=== PATIENT | female | born 1985 | race Caucasian/White ===

== ENCOUNTER 2019-04-10 00:53 | Inpatient (IN) | payer BC ==
[2019-04-10] VITALS (39 sets, daily range): BP systolic 95–129; BP diastolic 52–82; PULSE 74–114; TEMP 97.4–98.9
[~2019-04-10] VITALS: Ht 149.9 cm; Wt 66.4 kg
--- NOTE | 2019-04-10 01:00 | NUR ---
0100- Pt arrived on unit ambulatory, escorted by her and with complaints of SROM at 0015 with clear fluid. Pt denies any contractions or vaginal bleeding and reports normal movement. 0108- EFM and toco monitors started. SVE by this RN /3. Amnio-test positive. Vital signs WNL. 0130- Spoke with Dr. Guo. FHR tracing reviewed. Orders for labor admission received. Plan of care reviewed with pt and at the bedside. 0200- Consents reviewed and signed. 0225- IV started and labs obtained.
[2019-04-10] MEDS ORDERED: PRENATAL (01:23)
[2019-04-10] MEDS ORDERED: VITAMIN D250 MCG PO (01:24)
--- NOTE | 2019-04-10 02:32 | NUR ---
Pt off EFM to ambulate in the hallway.
[2019-04-10 03:05] LABS: BASO # 0.1 (0.0-0.2); BASO % 0.6 % (0.0-2.0); EOS # 0.1 (0.0-0.7); EOS % 1.3 % (0-4.0); GRAN # 6.4 (1.4-6.5); GRAN % 61.5 % (42.2-75.2); HEMOGLOBIN 11.5 g/dl (12.5-16.0); LYMPH % 28.5 % (20.0-51.0); MEAN CELL VOLUME 87 fl (80.0-100.0); MEAN CORPUSCULAR HEMOGLOBIN 28 pg (27.0-31.0); MEAN CORPUSCULAR HGB CONC 32 g/dl (33.0-37.0); MONO # 0.8 (0.1-0.6); MONO % 7.5 % (1.7-9.3); PLATELET COUNT 236 K/mm3 (130-400); RED BLOOD COUNT 4.12 M/mm3 (4.10-5.30); REDCELL DISTRIBUTION WIDTH-CV 15.2 % (11.5-14.5)
[2019-04-10 03:10] LABS: HEMATOCRIT 35.7 % (37.0-47.0)
--- NOTE | 2019-04-10 04:50 | NUR ---
Pitocin started per order and protocol. See EMAR for details.
--- NOTE | 2019-04-10 06:15 | NUR ---
PATIENT RESTING IN BED AND STANDING INTERMITTENTLY. PATIENT HAVING PAIN WITH CONTRACTIONS. PATIENT AND THIS NURSE DISCUSSED EPIDURAL RISKS AND BENEFITS. CONTRACTIONS EVERY 2-3 MINUITES. HAVING A BABY GIRL
--- NOTE | 2019-04-10 08:15 | NUR ---
PATIENT WANTS EPIDURAL. MIA HERNÁNDEZ NOTIFIED
--- NOTE | 2019-04-10 09:15 | NUR ---
PATIENT HAVING LATE DECELERATIONS. PATIENT TURNED FROM [facility], , ITTING UP THEN BACK TO . DR RUTHERFORD IN ROOM. OXYGEN APPLIED. PITOCIN 0. EPHEDERINE GIVEN
[2019-04-10] MEDS ORDERED: MOTRIN 800800 MG/TAB PO (13:04)
[2019-04-10] MEDS ORDERED: PERCOCET 325 MG1 TA2 PO (13:04)
--- NOTE | 2019-04-10 13:12 | NUR ---
VALDES REMOVED AT 1300 PATEINT STARTED PUSHING AT 1305. DR RUTHERFORD IN ROOM. OXYGEN APPLIED. HEART TONES DOWN TO 70S. VACUUM APPLIED BY DR RUTHERFORD. VACUUM DELIVERY BY DR RUTHERFORD AT 1312. TO MOTHERS CHEST, TO CARE OF JESSICA CORNELL RN. PLACENTA EXPRESSED AT 1314. FUNDAL MASSAGE PROVIDED. PITOCIN AT 333 MLS/HR. 2ND DEGREE LACERATION REPAIRED BY DR RUTHERFORD. ICE PACK TO PERINEUM. WARM BLANKET PROVIDED. RECOVERY STARTED 1330.
[2019-04-11 07:20] VITALS: BP 116/74; PULSE 81; TEMP 97.7
[2019-04-11 11:30] VITALS: BP 109/58; PULSE 95; TEMP 98.3
[2019-04-11 16:35] VITALS: BP 102/55; PULSE 85; TEMP 98.7
[2019-04-11 21:00] VITALS: BP 114/69; PULSE 84; TEMP 98.2
[2019-04-12 08:34] VITALS: BP 116/68; PULSE 80; TEMP 97.8
[2019-04-12] MEDS ORDERED: NEWMANS TOP (08:54)
== END 2019-04-12 12:00 | disposition home or self-care (01) | DRG 807 ==
LOC: LDRO 00:53 → LDR 01:49 → OB 15:30
PROVIDERS: ADMIT Obstetrics & Gynecology
PROC: 10D07Z6 Extraction of Products of Conception, Vacuum, Via Natural or Artificial Opening (ICD-10-PCS; principal; 2019-04-10)
PROC: 0KQM0ZZ Repair Perineum Muscle, Open Approach (ICD-10-PCS; 2019-04-10)
DX: O42.92 Full-term premature rupture of membranes, unspecified as to length of time between rupture and onset of labor (principal); Z37.0 Single live birth; O70.1 Second degree perineal laceration during delivery; O76 Abnormality in fetal heart rate and rhythm complicating labor and delivery; O62.0 Primary inadequate contractions; Z3A.38 38 weeks gestation of pregnancy
CPT/HCPCS: J2590; J2795; J7120

== ENCOUNTER → 2019-04-15 | Outpatient (CLI) | payer BC ==
[~2019-04-15] MED LIST: MOTRIN 800800 MG/TAB PO; NEWMANS TOP; PERCOCET 325 MG1 TA2 PO; PRENATAL; VITAMIN D250 MCG PO
--- NOTE | 2019-04-15 13:31 | NUR ---
Pt, Shady Vargas, presents for outpatient consult with 5 day old baby girl, Jasmina Da Silva. They are accompanied her pt's spouse, Connor Da Silva. Jasmina was referred for consult by Dr. Pearson because she was not having voids and stools after discharge from the hospital and she is now being supplemented by bottle. Jasmina was born on [birth year] and weiged 5#11.9oz (2605 gms). Discharge weight at two days of age was 5#5.7oz (2430 gms). Pt reports a [employer] visited with them at 3 days of age and Jasmina weighed 5#4oz. They had started supplement because of low output. Today Jasmina weighs 5#6.7oz (2458 gms), a slight difference from her appt with Dr. Pearson yesterday where she weighed 5#7oz. Voids and stools are reported to be as expected. Pt reports sore nipples with bleeding from the right side. She has an RX for Bird's Nipple cream which helps. She also states she is just starting to feel her breasts change with fullness. She has been using a manual pump about 6 times per day and collects a couple drops to a couple milliliters. Pt allows baby to take the nipple but does not compress to get more areola into baby's mouth so is in pain and jumpy as Jasmina latches. After LC instructs and assists her on cross cradle and how to get deeper latch pt states it actually does not hurt. AFter nursing bilaterally Jasmina only demonstrated a gain of 2 gms. She was bottle fed, taking about 50ml formula. Discussed securing better breastpump, other techniques that may help improve milk supply and herbal supplements. POC: Continue 3-step feeding plan, offer breast with better latch, supplement and pumping. Advised to increase supplement amount to 2oz per feeding as Jasmina tolerates. Feed at least 8 times daily. F/U: One week with this LC. Pt and spouse verbalize understanding of plan, handouts provided, questions invited and answered.
== END ==
LOC: LAC 12:01
DX: Z39.1 Encounter for care and examination of lactating mother (principal); Z71.89 Other specified counseling

== ENCOUNTER → 2019-04-22 | Outpatient (CLI) | payer BC ==
--- NOTE | 2019-04-22 14:09 | NUR ---
Pt, Shady Vargas, presents for follow up outpatient consult with 12 day old baby girl, Jasmina Da Silva, and her spouse Connor Da Silva. They were seen one week ago because Jasmina was not gaining weight well, had decrease voids and stools, and was needing supplement. Jasmina was born on [birth year] and weighed 5#11.9oz. At our previous appt. she weighed 5#6.7oz. Today Jasmina weighs 6#0.5oz (2736 gms). Jasmina has been receiving 15-17oz EBM or formula by bottle feeding daily. She is placed to the breast about 4 times daily and Shady is pumping 2-3 times per 24. She collects 2-4oz per 24 hours that is fed back to baby. Pt states soreness to nipples is gone. After bilaterally Jasmina had a total weight gain of 4gms. She is fed about 1.5oz formula by bottle. Impression: extremly low milk volume. Discussed best way to improve milk supply is to pump regularly, at least 8 times daily. Pt asked to consider exclusive pumping and bottle feeding in an effort to improve milk supply. She also started herbal supplements last night. Pt advised to expect 3-4 days of consistent pumping to evaluate effectiveness of pumping and herbal supplements. POC: Increase pumping opportunities, continue supplementing with bottle as she has been with EBM or formula. F/U: [facility] for one week, pending milk production. Questions invited and answered.
== END ==
LOC: OLC 13:14
DX: Z39.1 Encounter for care and examination of lactating mother (principal); Z71.89 Other specified counseling